=== PATIENT | female | born 1995 | race Native Hawaiian/Other Pacific Islander ===

== ENCOUNTER 2018-04-08 18:14 | Emergency (ER) | payer OTHER ==
[~2018-04-08] VITALS: Ht 167.6 cm; Wt 64.4 kg
[2018-04-08 18:24] VITALS: TEMP 98.4
[2018-04-08 18:47] LABS: PLATELET COUNT 209 K/uL (152-353)
[2018-04-08 18:55] LABS: POTASSIUM 3.2 mmol/L (3.6-5.2)
[2018-04-08 20:11] VITALS: BP 125/74
== END 2018-04-08 20:12 | disposition home or self-care (01) ==
LOC: ED 18:14
DX: R19.7 Diarrhea, unspecified (principal); Z3A.25 25 weeks gestation of pregnancy; R53.1 Weakness
CPT/HCPCS: 80053; 81000; 85027; 87088; 99283